=== PATIENT | male | born 1975 | race Caucasian/White ===

== ENCOUNTER 2016-06-06 14:24 | Emergency (ER) | payer OTHER ==
[~2016-06-06] VITALS: Ht 175.3 cm; Wt 84.0 kg
[2016-06-06 15:59] VITALS: BP 117/69
== END 2016-06-06 16:09 | disposition home or self-care (01) | DRG 156 ==
LOC: ED 14:24
PROC: 0HQ1XZZ Repair Face Skin, External Approach (ICD-10-PCS; principal; 2016-06-06)
DX: S01.21XA Laceration without foreign body of nose, initial encounter (principal); X99.8XXA Assault by other sharp object, initial encounter; Y93.89 Activity, other specified; Y92.89 Other specified places as the place of occurrence of the external cause; Y99.0 Civilian activity done for income or pay